=== PATIENT | female | born 1975 | race Caucasian/White ===

== ENCOUNTER 2021-09-11 08:53 | Emergency (ER) | payer MEDICAID ==
[~2021-09-11] VITALS: Ht 172.7 cm; Wt 90.0 kg
[2021-09-11 09:01] VITALS: BP 123/87
[2021-09-11] MEDS ORDERED: CEPH250T PO (09:15)
--- NOTE | 2021-09-11 09:53 | NUR ---
PT TREATED, SEEN AND DC FROM TRIAGE BY RUSSEL
== END 2021-09-11 10:20 | disposition home or self-care (01) ==
LOC: ER 08:54
DX: K13.0 Diseases of lips (principal); E03.9 Hypothyroidism, unspecified; F12.90 Cannabis use, unspecified, uncomplicated; Z79.2 Long term (current) use of antibiotics
CPT/HCPCS: 10060; 99283